=== PATIENT | female | born 1955 | race Caucasian/White ===

== ENCOUNTER → 2017-09-06 | Outpatient (CLI) | payer BC ==
--- NOTE | 2017-09-08 11:49 | MAM ---
EXAM DESCRIPTION: 3D Screening BILATERAL : Digital Mammography. CLINICAL HISTORY: 61 years Female SCREENING no complaints. No family history of breast cancer. Childbirth. Tracheostomy. HRT 5 or more years ago.. COMPARISON: Baseline study at this facility.. No prior reports available. TECHNIQUE: Bilateral CC and MLO projection full-field images, 3-D tomosynthesis digital mammographic technique. CAD not utilized. FINDINGS: The breast parenchymal density pattern is: Scattered areas of fibroglandular density. No skin thickening or nipple retraction. Bilateral solitary microcalcifications. Focal asymmetry at the 300 clock position of the middle third of the left breast approximately 8 cm from the nipple. Focal asymmetry at the 200 clock position of the middle third of the right breast approximately 8 cm from the nipple. IMPRESSION: BI-RADS CATEGORY: 0 - INCOMPLETE- Need additional imaging evaluation. FOLLOW-UP: Recall for additional imaging: Bilateral 3-D tomosynthesis full field LM images. Bilateral 2-D digital focal spot compression. Of the region of interest. Bilateral targeted breast ultrasound if indicated by diagnostic images. Written communication concerning the IMPRESSION and Follow-up, will be mailed to the patient and referring health care provider. Electronically signed by: Mando Oconnor MD 09/08/2017 11:47 AM CDT
== END ==
LOC: MAMMO 12:00
PROVIDERS: ATTEND Family Medicine
DX: Z12.31 Encounter for screening mammogram for malignant neoplasm of breast (principal)

== ENCOUNTER → 2017-10-06 | Outpatient (CLI) | payer BC ==
--- NOTE | 2017-10-06 09:47 | OP ---
DATE OF PROCEDURE: 10/06/17 PREOPERATIVE DIAGNOSIS: 1. Abnormal right mammogram with shadowing mass. POSTOPERATIVE DIAGNOSIS: 1. Abnormal right mammogram with shadowing mass. PROCEDURE: 1. Sonographically guided needle core biopsy, right breast mass in the upper outer quadrant. SURGEON: Dick Xavier MD. INSPECTOR LINE: None. ANESTHESIA: Local infiltration of 1% lidocaine. INDICATION: The patient is a 61-year-old female who on routine mammography was found to have solid, irregularly-shaped mass with shadowing in the upper outer quadrant of the right breast. She was brought to the Ultrasound Suite today for sonographically guided biopsy. FINDINGS: The ultrasound device revealed the biopsy needle within the mass on multiple passes. Pathology is pending. PROCEDURE: After the patient was placed in the supine position on the ultrasound table, the right breast was examined and the lesion was identified. The breast medial to the ultrasound probe was prepped with Betadine and draped. Local infiltration of anesthesia was obtained with 1% lidocaine and the 25- gauge needle was introduced to the mass and infiltration between the mass and the skin was performed. When this was done, a stab wound was made with a 15 blade and the biopsy device was introduced and fired on multiple passes. The specimen was sent for pathological evaluation. Hemostasis was obtained with pressure. A single 4-0 Prolene suture was used to close the skin. Sterile pressure dressing was applied. The patient tolerated the procedure well. Estimated blood loss was less than 5 mL. The patient will followup in 5 days. #[id number] [facility]
--- NOTE | 2017-10-06 15:03 | US ---
EXAM DESCRIPTION: Biopsy/Needle Guidance: Ultrasound. CLINICAL HISTORY: 61 years Female LUMP. Abnormal appearance mass right breast upper outer quadrant on targeted right breast ultrasound COMPARISON: Diagnostic ultrasound of the right breast on 09/22/2017. TECHNIQUE: The procedure was performed by Dr. Xavier. Repeat ultrasound localized the lesion at the 1000 clock position of the right breast 6 cm from the nipple.. Sterile preparation. Sterile ultrasound guidance during needle passes. FINDINGS: Preliminary scan shows the mixed echogenic lesion with margins not well-defined, similar appearance to the prior study with posterior shadowing. Multiple images demonstrate the echogenic needle passing through the lesion. No significant volume reduction in the lesion. IMPRESSION: Successful, ultrasound-guided needle core biopsy of right breast lesion. Adequate core samples were obtained. Pathology examination at remote facility, results pending. Electronically signed by: Mando Oconnor MD 10/06/2017 3:01 PM CDT
== END ==
LOC: US 08:23
PROVIDERS: ATTEND Surgery
DX: N63.11 Unspecified lump in the right breast, upper outer quadrant (principal)

== ENCOUNTER → 2018-03-16 | Outpatient (CLI) | payer BC ==
--- NOTE | 2018-03-17 14:27 | MAM ---
EXAM DESCRIPTION: Diagnostic Mammo,Bilateral: Digital Mammography CLINICAL HISTORY: 62 yearsFemaleABNORMAL MAMMOGRAM six-month follow-up benign ultrasound-guided needle biopsy right breast.. No personal or family history of breast cancer. Childbirth. Postmenopausal 22 years. Taken HRT 5 or more years ago.. Lifetime risk of developing breast cancer (Tyrer-Cuzick model) percentage is 6.9. COMPARISON: Ultrasound-guided needle biopsy right breast 10/06/2017. Diagnostic breast tomosynthesis and ultrasound breast 09/22/2017. Targeted right breast ultrasound following this examination.. Bilateral screening digital breast tomosynthesis 09/06/2017 . TECHNIQUE: Bilateral CC LM MLO projection full-field images, digital mammographic tomosynthesis technique. Bilateral 2-D digital full-field MLO images. CAD not utilized. FINDINGS: The breast parenchymal density pattern is: Scattered areas of fibroglandular density. No skin thickening or nipple retraction axillary lymph nodes. Minimal solitary microcalcifications. Ultrasound: Scanning right breast 10:00 sector, 6 cm from the nipple. Mostly fatty echotexture. No definite mass, but hypoechoic and echogenic region with posterior acoustic shadowing. Similar to prior study. No distinct cyst. No parenchymal edema or large calcification. No overlying skin changes. No abnormal vascularity. IMPRESSION: Benign exam. BIRAD CATEGORY: 2 BENIGN FINDINGS. RECOMMENDATIONS: FOLLOW UP: Return to routine digital bilateral mammographic screening, one year interval from August 2018. Written communication explaining the IMPRESSION and follow-up, will be mailed to the patient and referring health care provider. According to the [employer], yearly mammograms are recommended starting at age 40 and continuing as long as a woman is in good health. Any breast change noted on a breast self-exam should be reported promptly to the patient's healthcare provider. Breast MRI is recommended for women with an approximately 20-25% or greater lifetime risk of breast cancer, including women with a strong family history of breast or ovarian cancer and women who have been treated for Hodgkin's disease. A negative mammographic report should not delay tissue diagnosis in patients with significant clinical history or physical findings. Extremely dense breast tissue limits the sensitivity of digital mammography. Electronically signed by: Mando Oconnor MD 03/17/2018 2:25 PM DIRECTOR AMBULATORY
--- NOTE | 2018-03-18 16:22 | US ---
EXAM DESCRIPTION: Breast,Right: Ultrasound CLINICAL HISTORY: 62 yearsFemaleABNORMAL MAMMOGRAM COMPARISON: Digital diagnostic tomosynthesis bilateral breasts on this visit. ultrasound-guided right breast needle core biopsy 10/06/2017. TECHNIQUE: Transcutaneous scanning of the right breast utilizing newby-scale and Doppler modes. Scanning performed by the tent finisher ; observation by Dr. Oconnor. FINDINGS: Scanning right breast 10:00 sector, 6 cm from the nipple. Mostly fatty echotexture. No definite mass, but hypoechoic and echogenic region with posterior acoustic shadowing. Similar to prior study. No distinct cyst. No parenchymal edema or large calcification. No overlying skin changes. No abnormal vascularity. IMPRESSION: 1. Bi-Rads Category 2: Benign. 2. Please refer to bilateral diagnostic digital mammographic examination on the same visit. The FINDINGS and the FOLLOW-UP plan were reviewed in person with the patient after the examination. Written communication explaining the IMPRESSION and FOLLOW-UP will be mailed to the patient and referring care provider. Electronically signed by: Mando Oconnor MD 03/18/2018 4:20 PM [facility]
== END ==
LOC: MAMMO 08:59
PROVIDERS: ATTEND Family Medicine
DX: R92.8 Other abnormal and inconclusive findings on diagnostic imaging of breast (principal)

== ENCOUNTER → 2018-04-24 | Outpatient (CLI) | payer BC | LOC: GMAJ 10:46 | PROVIDERS: ATTEND Family Medicine | DX: E03.9 Hypothyroidism, unspecified (principal) ==

== ENCOUNTER → 2019-04-23 | Outpatient (CLI) | payer BC | DX: E03.8 Other specified hypothyroidism (principal); E78.2 Mixed hyperlipidemia ==